=== PATIENT | female | born 1995 | race American Indian/Alaskan Native ===

== ENCOUNTER 2017-04-23 13:12 | Emergency (ER) | payer OTHER ==
[2017-04-23 13:24] VITALS: O2SAT 99
[2017-04-23] MEDS ORDERED: Sodium Chloride 0.9% 1,000 ML ONE (14:21)
[2017-04-23] MEDS ORDERED: Sodium Chloride 0.9% 1,000 ML IV ONE (14:32)
[2017-04-23 14:35] LABS: HCG,QUALITATIVE URINE POSITIVE (NEGATIVE)
[2017-04-23 14:36] LABS: BASO % 0.1 % (0.0-2.0); EOS # 0.1 K/uL (0.0-0.7); EOS % 0.8 % (0.0-4.0); HEMOGLOBIN 12.4 g/dL (11.0-16.0); LYMPH # 1.6 K/uL (1.0-4.3); MEAN CELL VOLUME 89.5 fL (81.0-99.0); MEAN CORPUSCULAR HEMOGLOBIN 29.7 pg (27.0-31.0); MEAN CORPUSCULAR HGB CONC 33.2 g/dL (33.0-37.0); MEAN PLATELET VOLUME 8.4 fL (7.2-11.7); MONO # 0.6 K/uL (0.0-0.8); MONO % 6.5 % (0.0-10.0); NEUT # 7.7 K/uL (1.8-7.0); NEUT % 76.6 % (50.0-75.0); RBC 4.17 Mil/uL (3.80-5.20); RED CELL DISTRIBUTION WIDTH 15.3 % (11.5-14.5)
[2017-04-23 14:40] LABS: ALBUMIN 3.6 g/dL (3.5-5.0); SQUAMOUS EPITHIAL 10 /hpf (0-5); URINE BACTERIA OCC (<OCC); URINE BILIRUBIN NEGATIVE (NEGATIVE); URINE BLOOD NEGATIVE (NEGATIVE); URINE CLARITY Hazy (Clear); URINE COLOR Amber (YELLOW); URINE GLUCOSE (UA) NORMAL (Normal); URINE LEUKOCYTE ESTERASE 2+ Leu/uL (Negative); URINE NITRATE NEGATIVE (NEGATIVE); URINE PROTEIN 1+ mg/dL (NEGATIVE); URINE UROBILINOGEN NORMAL mg/dL (0.2-1.0)
[2017-04-23 14:43] LABS: ALB/GLOB RATIO 1.1 (1.0-2.1); AST/SGOT 26 U/L (14-36); GFR AFRICAN-AMERICAN > 60; GFR NON-AFRICAN AMERICAN > 60
[2017-04-23 14:44] LABS: ALT/SGPT 28 U/L (9-52); BLOOD UREA NITROGEN 7 mg/dL (7-17); CALCIUM 8.7 mg/dl (8.6-10.4)
--- NOTE | 2017-04-23 15:24 | US ---
OB , limited Indication: Pain, Comparison: None available Technique: Real-time ultrasound was performed through the pelvis. Findings: There is a single living fetus in cephalic presentation. Anterior placenta. The placenta is not previa. There are no adnexal masses or cysts evident. Cervix length measures approximately 3 cm. Measurements and calculations: Fetus has a composite sonographic age of 19 weeks 6 days. This calculation is based on the biparietal diameter, head circumference, abdominal circumference, and femur length. Estimated heart rate 138 beats per min. Impression: Single living fetus with a composite sonographic age of 19 weeks 6 days. Estimated heart rate 138 beats per min. The study was performed for the emergent evaluation of pain, and the whole anatomic survey of the fetus was not performed. This should be performed on an outpatient elective basis as clinically warranted.
--- NOTE | 2017-04-23 16:09 | C.PDOC ---
Time Seen by Provider: 04/23/17 13:51 Chief Complaint (Nursing): Female Genitourinary History Per: Patient Onset/Duration Of Symptoms: Days (about 1 week), Waxing/Waning Current Symptoms Are (Timing): Still Present Severity: Mild Location Of Pain/Discomfort: Suprapubic Radiation Of Pain To:: None Quality Of Discomfort: Unable To Describe Exacerbating Factors: None Alleviating Factors: None Additional History Per: Prior Records Abnormal Vaginal Bleeding: No Last Menstral Period: November 2016 : 1 Para: 0 Past Medical History Reviewed: Historical Data, Nursing Documentation, Vital Signs Vital Signs: Last Vital Signs Temp 98.6 F 04/23/17 13:22 Pulse 90 04/23/17 13:22 Resp 14 04/23/17 13:22 BP 111/63 04/23/17 13:22 Pulse Ox 99 04/23/17 13:22 - Medical History PMH: No Chronic Diseases Surgical History: No Surg Hx Family History: States: Unknown Family Hx - Social History Hx Tobacco Use: No Hx Alcohol Use: No Hx Substance Use: No Review Of Systems Except As Marked, All Systems Reviewed And Found Negative. Constitutional: Negative for: Fever, Weakness Cardiovascular: Negative for: Chest Pain Respiratory: Negative for: Shortness of Breath Gastrointestinal: Negative for: Vomiting, Diarrhea Genitourinary: Negative for: Dysuria, Vaginal Discharge, Vaginal Bleeding Musculoskeletal: Negative for: Neck Pain, Back Pain Skin: Negative for: Rash Neurological: Negative for: Weakness, Numbness, Seizures, Altered Mental Status Physical Exam - Physical Exam Appears: Non-toxic, No Acute Distress Skin: Normal Color, Warm, Dry, No Rash Head: Atraumatic, Normacephalic Eye(s): bilateral: Normal Inspection, PERRL, EOMI Neck: Normal ROM, Supple Cardiovascular: Rhythm Regular Respiratory: Normal Breath Sounds, No Accessory Muscle Use Gastrointestinal/Abdominal: Soft, No Tenderness, Other (Gravid) Back: No CVA Tenderness Extremity: Normal ROM Neurological/Psych: Oriented x3, Normal Motor, Normal Sensation ED Course And Treatment - Laboratory Results Result Diagrams: 04/23/17 14:22 04/23/17 14:22 Interpretation Of Abnormal: Possible UTI. Urine C&S sent. O2 Sat by Pulse Oximetry: 99 Pulse Ox Interpretation: Normal Reassessment Condition: Improved - Physician Consult Information Physician Contacted: David Guardado (Emergency Veterinary Assistant) Outcome Of Conversation: I discussed the pt's presentation, labs and US findings. She states pt should be discharged with Rx for Macrobid and f/up in the clinic. Disposition Counseled Patient/Family Regarding: Studies Performed, Diagnosis, Need For Followup, Rx Given - Disposition Referrals: [facility] [Outside] Jackson Montilla [Staff Provider] - Disposition: HOME/ ROUTINE Disposition Time: 16:09 Condition: STABLE Additional Instructions: Follow up with an Emergency Veterinary Assistant doctor within 1 week for further evaluation and treatment. Return to the ER if you develop fever, vomiting, bleeding, worsening of symptoms or if you have any other concerns. Prescriptions: Nitrofurantoin Macrocrystals [Macrobid] 1 cap PO BID #14 cap Vit Calc,Iron,Folic [ Vitamins] 1 tab PO DAILY #30 tablet Instructions: Urinary Tract Infection in (ED) Forms: [facility] (Estonian) - Clinical Impression Clinical Impression: Abdominal pain during in second trimester
[2017-04-23 16:30] VITALS: BP 121/66; PULSE 84; RESP 18; TEMP 97.9
== END 2017-04-23 16:15 | disposition home or self-care (01) ==
LOC: C.ER 13:12
DX: O26.892 Other specified pregnancy related conditions, second trimester (principal); R10.30 Lower abdominal pain, unspecified; Z3A.19 19 weeks gestation of pregnancy
CPT/HCPCS: 76815; 80053; 81001; 84702; 84703; 85025; 86850; 86900; 87086; 96360; 99285; J7040

== ENCOUNTER 2018-10-10 16:44 | Emergency (ER) | payer OTHER, MEDICAID | END 2018-10-10 18:03 | disposition home or self-care (01) | LOC: C.ER 16:44 ==

== ENCOUNTER 2018-10-27 15:42 | Outpatient (CLI) | payer OTHER | END 2018-10-27 15:43 | disposition home or self-care (01) | LOC: C.LAB 15:42 | DX: A60.00 Herpesviral infection of urogenital system, unspecified (principal) ==